=== PATIENT | female | born 1955 | race Two or more races ===

== ENCOUNTER → 2019-11-11 | Outpatient (CLI) | payer OTHER ==
[~2019-11-11] VITALS: Ht 157.5 cm; Wt 86.6 kg
[~2019-11-11] MED LIST: HYDRODIURIL12.5 MG; LIPITOR20 MG; NORVASC2.5 M1; TOPROL XL50 M1; ZESTRIL20 MG
== END | disposition home or self-care (01) ==
LOC: OFIC 805 08:57
PROVIDERS: ATTEND Otolaryngology
DX: R42 Dizziness and giddiness (principal)

== ENCOUNTER 2020-01-12 11:07 | Outpatient (CLI) | payer OTHER | END 2020-01-12 12:00 | disposition home or self-care (01) | LOC: OFIC 805 11:07 | PROVIDERS: ATTEND Otolaryngology | DX: L72.0 Epidermal cyst (principal); R42 Dizziness and giddiness ==

== ENCOUNTER → 2020-01-19 | Outpatient (CLI) | payer OTHER | END | disposition home or self-care (01) | LOC: OFIC 805 11:15 | PROVIDERS: ATTEND Otolaryngology | DX: R42 Dizziness and giddiness (principal); L72.0 Epidermal cyst ==

== ENCOUNTER 2020-02-13 05:35 | Day surgery (SDC) | payer OTHER ==
[~2020-02-13 05:35] MED LIST changes: +GLIMEPIRIDE4 MG; +JANUVIA100 MG PO
[2020-02-13] MEDS ORDERED: KEFLEX500 MG PO (09:21)
== END 2020-02-13 10:30 | disposition home or self-care (01) ==
LOC: CIR.AMB 05:35
PROVIDERS: ATTEND Otolaryngology
DX: L72.12 Trichodermal cyst (principal); L72.11 Pilar cyst; Z20.828 Contact with and (suspected) exposure to other viral communicable diseases

== ENCOUNTER → 2020-02-23 | Outpatient (CLI) | payer OTHER ==
[~2020-02-23] MED LIST changes: +KEFLEX500 MG PO
== END | disposition home or self-care (01) ==
LOC: OFIC 805 02-22 09:15
PROVIDERS: ATTEND Otolaryngology
DX: L72.3 Sebaceous cyst (principal)